=== PATIENT | female | born 1990 | race Caucasian/White ===

== ENCOUNTER 2019-05-24 18:55 | Emergency (ER) | payer BC ==
[~2019-05-24] VITALS: Ht 160 cm; Wt 50.3 kg
[~2019-05-24 18:55] MED LIST: MAG355OR14 PO; OMEP20CA16 PO; SULF1TAB31 PO
[2019-05-24 19:07] VITALS: Ht 160 cm; Wt 50.3 kg
[2019-05-24] MEDS ORDERED: LIDOCAINE/MYLANTA 40 ML BTL PO ONE (21:00)
[2019-05-24 22:44] VITALS: BP 111/72; PULSE 83; RESP 17
== END 2019-05-24 22:44 | disposition home or self-care (01) ==
LOC: FTE 18:55
DX: R07.9 Chest pain, unspecified (principal); N30.90 Cystitis, unspecified without hematuria
CPT/HCPCS: 71046; 81001; 81025; 84484; 93005; 99285; Z7610